=== PATIENT | female | born 1995 | race Caucasian/White ===

== ENCOUNTER 2017-09-18 16:55 | Emergency (ER) | payer OTHER ==
--- NOTE | 2017-09-18 17:33 | PDOC ---
Rapid Medical Evaluation Chief Complaint: Cold Symptoms Time Seen by Provider: 09/18/17 17:30 Medical Evaluation: Allergies Allergy/AdvReac Type Severity Reaction Status Date / Time sulfamethoxazole Allergy Verified 09/18/17 17:30 [From Bactrim] trimethoprim [From Bactrim] Allergy Verified 09/18/17 17:30 09/18/17 17:30 I have performed a brief in-person evaluation of this patient. The patient presents with a chief complaint of fever and bodyaches since yesterday. States took dayquil this am. Pertinent physical exam findings are rhinorrhea even and unlabored breathing with clear lungs bilaterally I have ordered the following antipyretic, cough syrup this patient will proceed to the ED for further evaluation.
[2017-09-18 17:34] VITALS: BP 114/55; BMI 21.2
[2017-09-18] MEDS ORDERED: guaiFENesin/D-METHORPHAN HB 10 ML UNIT-DOSE CUPS PO ONE (17:34)
[2017-09-18] MEDS ORDERED: IBUPROFEN 400 MG TABLET (FP) PO ONE ×2 (17:34→18:03)
[2017-09-18] MEDS ORDERED: guaiFENesin/D-METHORPHAN HB 10 ML UNIT-DOSE CUPS ONE (18:04)
--- NOTE | 2017-09-18 18:04 | PDOC ---
History of Present Illness - General Chief Complaint: Cold Symptoms Stated Complaint: FATIGUE Time Seen by Provider: 09/18/17 17:30 History Source: Patient - History of Present Illness Timing/Duration: reports: yesterday Severity: reports: moderate Associated Symptoms: reports: cough, fever/chills, muscle aches. denies: earache Past History - Past Medical History Allergies/Adverse Reactions: Allergies Allergy/AdvReac Type Severity Reaction Status Date / Time sulfamethoxazole Allergy Verified 09/18/17 17:30 [From Bactrim] trimethoprim [From Bactrim] Allergy Verified 09/18/17 17:30 Home Medications: Ambulatory Orders NK [No Known Home Medication] 09/18/17 CVA: No COPD: No DVT: No Dementia: No Psychiatric Problems: Yes (anxiety) - Immunization History Immunization Up to Date: Yes - Suicide/Smoking/Psychosocial Hx Smoking History: Never smoked Have you smoked in the past 12 months: No Information on smoking cessation initiated: No Hx Alcohol Use: No Drug/Substance Use Hx: No Substance Use Type: None Review of Systems - Review of Systems Constitutional: Yes: Fever, Malaise HEENTM: No: Ear Pain, Throat Pain Respiratory: Yes: Cough Neurological: No: Headache *Physical Exam - Vital Signs Last Vital Signs Temp Pulse Resp BP Pulse Ox 100.9 F H 123 H 18 114/55 100 09/18/17 17:31 09/18/17 17:31 09/18/17 17:31 09/18/17 17:31 09/18/17 17:31 - Physical Exam General Appearance: Yes: Appropriately Dressed HEENT: positive: Normal ENT Inspection, Normal Voice. negative: Scleral Icterus (R), Scleral Icterus (L) Neck: positive: Supple. negative: Lymphadenopathy (R), Lymphadenopathy (L) Respiratory/Chest: positive: Lungs Clear, Normal Breath Sounds. negative: Respiratory Distress Cardiovascular: positive: S1, S2, Tachycardia Integumentary: positive: Dry, Warm Neurologic: positive: Fully Oriented, Alert, Normal Mood/Affect Medical Decision Making - Medical Decision Making 09/18/17 18:01 21-year-old female, no significant history here with body aches with malaise, dry cough and low-grade fever since yesterday. No ear pain, sore throat, shortness of breath, vomiting or diarrhea. Works at a daycare. No recent travel See exam Viral syndrome Ill ally w/ low grade fever -motrin -upreg -flu swab -anticipate dc w/ supportive tx 09/18/17 18:59 Flu test negative. Vitals improved. Dc w/ supportive tx *DC/Admit/Observation/Transfer Diagnosis at time of Disposition: Viral syndrome - Discharge Dispostion Disposition: HOME Condition at time of disposition: Improved - Referrals Referrals: Abraham Ferguson MD [Primary Care Provider] - - Patient Instructions Printed Discharge Instructions: DI for Viral Syndrome Additional Instructions: You most likely have a viral illness. Your flu test was negative. Rest, drink plenty of fluids and take Motrin or Tylenol for body aches and fever - Post Discharge Activity Forms/Work/School Notes: Back to Work
[2017-09-18 19:26] VITALS: PULSE 94; TEMP 99.1
== END 2017-09-18 19:26 | disposition home or self-care (01) ==
LOC: JERFT 16:55
DX: B34.9 Viral infection, unspecified (principal); F41.9 Anxiety disorder, unspecified
CPT/HCPCS: 84703; 87804; 99281-25